=== PATIENT | female | born 1990 | race Caucasian/White ===

== ENCOUNTER 2016-12-18 10:04 | Day surgery (SDC) | payer OTHER ==
--- NOTE | 2016-12-14 09:05 | PDGENHP ---
History and Physical - Chief Complaint RIGHT HIP PAIN - History of Present Illness 1. Bilateral~Hip Dyplasia - Right hip labral tear 2. Left Femoral retrotorsion 3. ~~Cam type ANISH, minimal HISTORY OF PRESENT ILLNESS: Jaredis a 26 y.o.~very ~active female~who I have had the pleasure to consult on today.~I have enjoyed meeting her. She~lives in [place], [place]. ~Jaredworks as a CPA. ~ She~is ; she~has no~children. ~Jaredenjoys [employer], rock climbing, skiing and hiking. Reena's~right~hip pain~started August 2013, with some~recalled trauma or injury~ while playing [employer], and with no~previous complaints.~Jaredhas~a known history of hip dysplasia. She was seen at [facility] and~Dr. Castano informed~her that she has ~dysplasia.~ Presentation today is of~anterior right~hip pain. ~The hip does~wake her~at night and does~click and catch on her. Sitting can be a real struggle~for her. Jareddoes not~report suffering from lower back pain episodes. Jaredhas~participated in physical therapy (September 2013-November 2013)~and has~ tried other conservative measures including dry needling, chiropractic treatments and massage therapy. She~has not~received sufficient symptomatic improvement. Jaredhas not~utilized medication for pain management. Jareddenies issues with the left~hip. ~ Jaredunderstands that she~has a hip and pelvis problem which should be researched and wishes to get a better understanding of her~hip status, followed by an establishment of a treatment strategy, hoping sheTiffaniewould be able to get back to her~well being active life. History: Past medical history: ~ None which is relevant Relevant familial history: None which is relevant Past surgical history: None Jaredhas never received general anesthesia. I have reviewed, verified and agree with the past medical, surgical, family and social history. Current Medications:~currently has no medications in their medication list. ALLERGIES:~has No Known Allergies. Objective: Physical Examination: Jaredis 5~feet 5~inches tall and weighs~130~Lbs. Jaredis AAO x3; she~is well- nourished, in NAD. Skin is warm and dry. ~Breathing is non-labored. ~CV with RRR by pulse. Abdomen is soft, NTND. Currently, she~walks with a normal~gait. Trendelenburg sign is negative~and proprioception~is reduced, left~side. She~presents~with mild~signs of joint laxity.~Beightons Score: 3 She~is fit looking. ~~ Lower spine examination is negative~for sciatic or femoral nerve irritation with negative~SLR &~femoral stretch tests. Range of motion of the spine is normal~for flexion, extension, and rotations, with no~associated pain. Strength, Sensation and pulses are normal - bilaterally Ankles and knees exams are normal~and no~mal-alignment is evident. She~has~no leg length discrepancy. Thigh circumference is asymmetric~with low~muscle atrophy~on right~side. Hip ROM (degrees): FL ER At 90~hip FL IR At 90~hip FL AB AD EX IR Neutral hip ER Neutral hip R 110 50 50 40 10 10 50 25 L 105 55 10 40 5 15 30 45 Specific hip and pelvis tests: Quadrant GARTH Roll Add. Longus R +++ +++ Negative Negative L Negative Negative Negative Negative Glut. Med ITB Pos. Imp R Negative 5/5 strength Negative 5/5 strength Negative L Negative 5/5 strength Negative 5/5 strength Negative Squeeze test measured strong Bony Symphysis pubis is pain free~to touch while concentric activity of the rectus abdominis, does not~produce pain at its insertion. Ilio Psos specific tests are negative for pain during cycling for both hips~and no snap. HF has weakness the right hip. Anterior~capsule tenderness RIGHT Greater trochanteric burse is painful~on the right hip. Piriformis tests: FAIR is negative, with no~local signs of neuritis related to sciatic nerve. SIJs examination is normal~with normal~GARTH in relation and local tenderness. Hamstrings tests are negative~functional contraction and negative~tendinopathy both hips. On a daily basis, the following percentages reflect Reena's overall total pain: Deep hip: 90% GT: 10% Imaging: Radiology studies which I~have personally reviewed, analyzed and measured are below: XR: AP of the hip and pelvis: Performed in a good~technique Coccyx is below level of pubic symphysis [place]~Lines are interrupted. Minimal~Pathological signs are seen in the Symphysis Pubis. Minimal~Pathological signs are seen at the Ischial~tuberosity. ~ Specific measurements show: NSA~ LCE Sourcil~Angle Sharp's angle Lat. Cam Lat. Pincer C.Over~sign Head~Coverage % ATDmm R N 5 29 53 - - - 56 N L N 3 29 54 + - - 56 N Pos. wall sign ISS NAD ~~Dysplasia Comments R + Negative 23.3~mm +++ L ++ Negative 11.9~mm +++ Sclerosis Sup. Lat. OA Cysts Joint Space-WBZ Joint Space-Medial R Negative Negative Negative 5.6~mm 5.3~mm L Negative Negative Negative 5.1~mm 5.1~mm Reena brought in MRI study which was loaded in our system but we are unable to view study at this time. Impression and plan:~ Jaredis a 26 y.o.~active female~suffering from symptomatic RIGHT~hip pain due to Bilateral~Hip Dyplasia~causing significant disability to her~and altering~her ~sport and life activities. Physical examination, imaging, and her~story correspond with the diagnosis mentioned above. I explained that hip dysplasia is a condition wherein the hip joint has excessive play~and instability due to a variety of factors, including the depth and adequacy of the socket, the orientation of the femur bone, and ligament laxity around the hip joint. Dysplasia ranges in severity from borderline to jeana, with treatment options being specific to the specific nature of the problem. Left untreated, the instability in the hip joint can cause progressive tearing of the labrum and deterioration of the surface cartilage, ultimately resulting in progressive osteoarthritis of the hip. I explained that femoroacetabular impingement (ANISH - Cam type) arises due to a bony or soft tissue conflict between the femur (ball) and acetabulum (socket) caused by an abnormality in the shape of the femoral head and neck. Over time, repetitive impingement can result in damage to the labrum and adjacent surface cartilage within the socket, ultimately giving rise to progressive osteoarthritis of the hip. I explained that although a labral tear can be a source of pain, it is rarely the root of the problem and typically occurs secondary to an underlying abnormality in the shape and mechanics of the hip joint. I reviewed conservative treatment options for Dysplasia and ANISH including activity modification to avoid positions of impingement or instability, physical therapy, non-steroidal anti-inflammatory medications, and various injections (corticosteroid and PRP) aimed at reducing inflammation in the hip joint or/and preventing dynamic instability and impingement. PRP injections may promote healing and reduce symptoms in certain cases but it will not repair chronically damaged tissue. Although these measures may help to buy time~and reduce current level of symptoms, they are not a definitive solution to the problem given the underlying abnormality in the shape of the hip joint. Patients who have failed conservative management and continue to experience symptoms are candidates for definitive surgical treatment, which may consist of hip arthroscopy alone or in combination with more invasive bony realignment procedures of the hip socket and/or femur called periacetabular osteotomy (WERO) or derotational femoral osteotomy (DFO). Hip arthroscopy typically includes treating the labrum with either repair or reconstruction of the torn labrum; as well as addressing the underlying abnormalities by restoring the normal shape to the hip joint. If the cartilage is damaged a Microfracture surgical procedure may also be necessary to help stimulate the growth of fibrocartilage. If a patient requires a labral reconstruction or a Microfracture, the initial rehabilitation from the surgery may take longer, but the assistant terminal manager results are typically favorable. I reviewed the technical aspects of periacetabular osteotomy (WERO) including risks, benefits, and expected course of recovery. Reena~understands that WERO is an inpatient procedure carried out through two medium sized incisions on the front and back of the hip joint. The hip socket is cut, realigned, and stabilized with 2 ~3 internal screws. Risks include infection, bleeding, injury to nearby nerves or vessels, stiffness, persistent pain, instability, failure of bony healing, implant related complications, and venous thromboembolic disease. Rarely, revision surgery may be required to address these problems. Risks, potential complications, side effects and recovery from surgical procedure were discussed in length. We explained how this surgery is an open procedure, and though patients tend to do well in the long-term, it involves significant pain in the first 2-4 weeks post-op and a rather lengthy rehab.~Overall recovery takes approximately 6 ~12~months depending on the extent of damage and degree of repair. Reena~understands that she~will undergo hip arthroscopy 1 week prior to the WERO to address damage inside the hip joint. Jaredunderstands that hip arthroscopy and WERO are two separate procedures that are best performed one week apart, with the arthroscopy commencing first to "tighten up" any pathology evident in the hip joint (labral repair, etc.) and the WERO open procedure occurring 7-10 days later to realign the acetabulum. Jaredwill review the info presented. In order to obtain more detailed information regarding the alignment, orientation, and shape of the bony hip and pelvis I will order a CT scan to be performed. The results of the CT scan, including femoral torsion and acetabular version measured values and 3D images, will aid me in deciding on the best treatment strategy and surgical pre-planning. In order to evaluate the integrity of the surface cartilage within the hip joint , I will order a delayed gadolinium enhanced MRI of cartilage (dGEMRIC). This study will determine whetherJonnyis a good candidate for hip preservation surgery. Jaredwill contact us if she~wishes to pursue further treatment in the future. Jaredis happy with this plan. I have also supplied her~with handouts, outlining the expected surgical treatment and rehab involved. I wish~Jaredall the best, ~~ Jovany Jc, PAC History Information - Allergies/Home Medication List Allergies/Adverse Reactions: No Known Allergies Allergy (Verified 11/27/16 11:04) Home Medications: NK [No Known Home Meds] 11/27/16 [Last Taken Unknown] I have personally reviewed and updated: medical history - Social History Smoking Status: Never smoked Review of Systems Review of Systems: Physical Exam Physical Exam:
[2016-12-18] MEDS ORDERED: BUPIVACAINE 0.25% 30 ML SDV ONE (10:18)
[2016-12-18] MEDS ORDERED: EPINEPHrine 30 MG/30 ML MDV ONE (10:18)
[2016-12-18] MEDS ORDERED: LIDOCAINE 1% 2 ML INJ ONE (11:01)
[2016-12-18] MEDS ORDERED: ACETAMINOPHEN 500 MG TAB PO ONE (11:03)
[2016-12-18] MEDS ORDERED: ceFAZolin 2 GM/SWFI 2 GM/20 ML SYR IVP ONE (11:03)
[2016-12-18] MEDS ORDERED: PREGABALIN 150 MG CAP PO ONE (11:03)
[2016-12-18] MEDS ORDERED: LR 1,000 ML IV ONE (11:04)
[2016-12-18] MEDS ORDERED: LIDOCAINE 1% 2 ML INJ ID PRN (11:04)
[2016-12-18] MEDS ORDERED: MIDAZOLAM 2 MG/2 ML VIAL IVP ONE (14:20)
[2016-12-18] MEDS ORDERED: MIDAZOLAM 2 MG/2 ML VIAL ONE (14:22)
--- NOTE | 2016-12-18 14:25 | PDANEPAE ---
ANE History of Present Illness Hip arthroscopy ANE Past Medical History - Cardiovascular History Hx Hypertension: No Hx Arrhythmias: No Hx Chest Pain: No Hx Coronary Artery / Peripheral Vascular Disease: No Hx CHF / Valvular Disease: No Hx Palpitations: No - Pulmonary History Hx COPD: No Hx Asthma/Reactive Airway Disease: No Hx Recent Upper Respiratory Infection: No Hx Oxygen in Use at Home: No Hx Sleep Apnea: No Sleep Apnea Screening Result - Last Documented: Negative - Neurologic History Hx Cerebrovascular Accident: No Hx Seizures: No Hx Dementia: No - Endocrine History Hx Diabetes: No Hypothyroid: No Hyperthyroid: No Obesity: no - Renal History Hx Renal Disorders: No - Liver History Hx Hepatic Disorders: No - Neurological & Psychiatric Hx Hx Neurological and Psychiatric Disorders: No - Cancer History Hx Cancer: No - Congenital Disorder History Hx Congenital Disorders: No - GI History GERD: no Hx Gastrointestinal Disorders: No - Other Health History Other Health History: wears contacts - Chronic Pain History Chronic Pain: Yes (right hip) - Surgical History Prior Surgeries: 12/18/16 Right Hip scope, femoroplasty and labral repair with jessica-betsy. oral surgeries ANE Review of Systems Review of Systems: - Exercise capacity METS (RN): 5 METS ANE Patient History - Allergies Allergies/Adverse Reactions: No Known Allergies Allergy (Verified 11/27/16 11:04) - Home Medications Home Medications: NK [No Known Home Meds] 11/27/16 [Last Taken Unknown] - NPO status NPO Since - Liquids (Date): 12/18/16 NPO Since - Liquids (Time): 08:00 NPO Since - Solids (Date): 12/17/16 NPO Since - Solids (Time): 19:30 - Smoking Hx Smoking Status: Never smoked - Alcohol Use Alcohol Use: Rarely - Family Anes Hx Family Anes Hx: none Family Hx Anesthesia Complications: none ANE Labs/Vital Signs - Vital Signs Blood Pressure: 103/70 Heart Rate: 62 Respiratory Rate: 16 O2 Sat (%): 97 Height: 165.1 cm Weight: 58.967 kg ANE Physical Exam - Airway Neck exam: FROM Mallampati Score: Class 1 Mouth exam: normal dental/mouth exam - Pulmonary Pulmonary: no respiratory distress - Cardiovascular Cardiovascular: regular rate and rhythym, no murmur, rub, or gallop - ASA Status ASA Status: I ANE Anesthesia Plan Anesthesia Plan: general endotracheal anesthesia
[2016-12-18] MEDS ORDERED: SCOPOLAMINE HYDROBROMIDE 1 MG/3 DAYS PATCH TD ONE (14:29)
[2016-12-18] MEDS ORDERED: SCOPOLAMINE HYDROBROMIDE 1 MG/3 DAYS PATCH TD SCH (14:30)
[2016-12-18] MEDS ORDERED: fentaNYL 100 MCG/2 ML INJ ONE ×4 (14:30→17:05)
[2016-12-18] MEDS ORDERED: PROPOFOL 200 MG/20 ML VIAL ONE (14:30)
[2016-12-18] MEDS ORDERED: PROPOFOL/EMULSION 500 MG/50 ML BOTTLE IV ONE (14:30)
[2016-12-18] MEDS ORDERED: GLYCOPYRROLATE 0.2 MG/1 ML VIAL ONE ×3 (14:31→16:30)
[2016-12-18] MEDS ORDERED: DEXAMETHASONE 4 MG/ML VIAL ONE (14:31)
[2016-12-18] MEDS ORDERED: ROCURONIUM 50 MG/5 ML VIAL ONE ×2 (14:31→15:17)
[2016-12-18] MEDS ORDERED: LIDOCAINE 2% 5 ML SDV ONE (14:31)
[2016-12-18] MEDS ORDERED: NEOSTIGMINE METHYLSULFATE 3 MG/3 ML SYR ONE (16:30)
[2016-12-18] MEDS ORDERED: NALOXONE HCL 0.4 MG/ML INJ IVP PRN (17:00)
[2016-12-18] MEDS ORDERED: OXYCODONE/APAP 5/325 TAB PO PRN (17:00)
[2016-12-18] MEDS ORDERED: LR 500 ML IV PRN (17:00)
[2016-12-18] MEDS ORDERED: HYDROCODONE/APAP 5/325 TAB PO PRN (17:00)
[2016-12-18] MEDS ORDERED: MEPERIDINE 25 MG/ML SYR IVP PRN (17:00)
[2016-12-18] MEDS ORDERED: ONDANSETRON 4 MG/2 ML VIAL IVP PRN (17:00)
[2016-12-18] MEDS ORDERED: HYDROmorphONE/DILAUDID 1 MG/ML INJ IVP PRN (17:00)
[2016-12-18] MEDS ORDERED: PROMETHAZINE HCL 25 MG/ML INJ IVP PRN (17:00)
[2016-12-18] MEDS ORDERED: KETOROLAC 30 MG/1 ML SDV IVP PRN (17:03)
[2016-12-18] MEDS ORDERED: HYDROmorphONE/DILAUDID 1 MG/ML INJ ONE (17:04)
[2016-12-18] MEDS: fentaNYL 100 MCG/2 ML INJ IVP PRN ×2 (17:10→17:25)
[2016-12-18 17:23] VITALS: TEMP 98.6
[2016-12-18 18:08] VITALS: BP 111/60; PULSE 77; RESP 14; O2SAT 98
== END 2016-12-18 18:50 | disposition home or self-care (01) ==
LOC: FSGY 10:04
PROVIDERS: ATTEND Orthopaedic Surgery Sports Medicine
DX: Q65.89 Other specified congenital deformities of hip (principal); M76.891 Other specified enthesopathies of right lower limb, excluding foot
CPT/HCPCS: C1713; J0690; J1100; J1170; J2250; J2704; J2710; J3010

== ENCOUNTER 2017-01-01 06:52 | Inpatient (IN) | payer OTHER ==
--- NOTE | 2016-12-18 16:56 | POSTANESTH ---
Post Anesthetic Evaluation Cardiovascular Status: Normal, Stable Respiratory Status: Normal, Stable Level of Consciousness/Mental Status: Can Participate in Eval Pain Control: Adequate, Prn Tx Ordered Nausea/Vomiting Control: Adequate, Prn Tx Ordered Complications Possibly Related to Anesthesia: None Noted
[~2017-01-01 06:52] MED LIST: HYDROCODONE/APAP 5/325 TAB PO PRN; HYDROmorphONE/DILAUDID 1 MG/ML INJ IVP PRN; KETOROLAC 30 MG/1 ML SDV IVP PRN; LR 500 ML IV PRN; MEPERIDINE 25 MG/ML SYR IVP PRN; NALOXONE HCL 0.4 MG/ML INJ IVP PRN; ONDANSETRON 4 MG/2 ML VIAL IVP PRN; OXYCODONE/APAP 5/325 TAB PO PRN; PROMETHAZINE HCL 25 MG/ML INJ IVP PRN; fentaNYL 100 MCG/2 ML INJ IVP PRN
[2017-01-01] MEDS ORDERED: LIDOCAINE 1% 2 ML INJ ID PRN (07:03)
[2017-01-01] MEDS ORDERED: LR 1,000 ML IV ONE (07:03)
[2017-01-01] MEDS ORDERED: TRANEXAMIC ACID 1,000 MG in NS 100 ML IV ONE (07:32)
[2017-01-01] MEDS ORDERED: PREGABALIN 150 MG CAP PO ONE (07:32)
[2017-01-01] MEDS ORDERED: ACETAMINOPHEN 500 MG TAB PO ONE (07:32)
[2017-01-01] MEDS ORDERED: ceFAZolin 2 GM/SWFI 2 GM/20 ML SYR IVP ONE (07:32)
[2017-01-01] MEDS ORDERED: SCOPOLAMINE HYDROBROMIDE 1 MG/3 DAYS PATCH TD ONE (07:32)
--- NOTE | 2017-01-01 07:32 | PDGENHP ---
History and Physical - Chief Complaint Hip Pain - History of Present Illness 1. Bilateral~Hip Dyplasia - Right hip labral tear 2. Left Femoral retrotorsion 3. ~~Cam type ANISH, minimal HISTORY OF PRESENT ILLNESS: Jaredis a 26 y.o.~very ~active female~who I have had the pleasure to consult on today. I have enjoyed meeting her. She~lives in [place], [place]. ~Jaredworks as a CPA. ~ She~is ; she~has no~children. ~Jaredenjoys [employer], rock climbing, skiing and hiking. Reena's~right~hip pain~started August 2013, with some~recalled trauma or injury while playing [employer], and with no~previous complaints. Jaredhas~a known history of hip dysplasia. She was seen at [facility] and~Dr. Castano informed~her that she has ~dysplasia.~ Presentation today is of anterior right~hip pain. ~The hip does~wake her~at night and does~click and catch on her. Sitting can be a real struggle~for her. Jareddoes not~report suffering from lower back pain episodes. Jaredhas~participated in physical therapy (September 2013-November 2013)~and has~ tried other conservative measures including dry needling, chiropractic treatments and massage therapy. She~has not~received sufficient symptomatic improvement. Jaredhas not~utilized medication for pain management. Jareddenies issues with the left~hip. ~ Jaredunderstands that she~has a hip and pelvis problem which should be researched and wishes to get a better understanding of her~hip status, followed by an establishment of a treatment strategy, hoping sheTiffaniewould be able to get back to her~well being active life. History: Past medical history: ~ None which is relevant Relevant familial history: None which is relevant Past surgical history: None Jaredhas never received general anesthesia. I have reviewed, verified and agree with the past medical, surgical, family and social history. Current Medications:~currently has no medications in their medication list. ALLERGIES:~has No Known Allergies. Objective: Physical Examination: Jaredis 5~feet 5~inches tall and weighs 130~Lbs. Jaredis AAO x3; she~is well- nourished, in NAD. Skin is warm and dry. ~Breathing is non-labored. ~CV with RRR by pulse. Abdomen is soft, NTND. Currently, she~walks with a normal~gait. Trendelenburg sign is negative~and proprioception is reduced, left~side. She~presents with mild~signs of joint laxity. Beightons Score: 3 She~is fit looking. ~~ Lower spine examination is negative~for sciatic or femoral nerve irritation with negative~SLR &~femoral stretch tests. Range of motion of the spine is normal~for flexion, extension, and rotations, with no~associated pain. Strength, Sensation and pulses are normal - bilaterally Ankles and knees exams are normal~and no~mal-alignment is evident. She~has no leg length discrepancy. Thigh circumference is asymmetric~with low~muscle atrophy~on right~side. Hip ROM (degrees): FL ER At 90~hip FL IR At 90~hip FL AB AD EX IR Neutral hip ER Neutral hip R 110 50 50 40 10 10 50 25 L 105 55 10 40 5 15 30 45 Specific hip and pelvis tests: Quadrant GARTH Roll Add. Longus R +++ +++ Negative Negative L Negative Negative Negative Negative Glut. Med ITB Pos. Imp R Negative 5/5 strength Negative 5/5 strength Negative L Negative 5/5 strength Negative 5/5 strength Negative Squeeze test measured strong Bony Symphysis pubis is pain free~to touch while concentric activity of the rectus abdominis, does not~produce pain at its insertion. Ilio Psos specific tests are negative for pain during cycling for both hips~and no snap. HF has weakness the right hip. Anterior~capsule tenderness RIGHT Greater trochanteric burse is painful~on the right hip. Piriformis tests: FAIR is negative, with no~local signs of neuritis related to sciatic nerve. SIJs examination is normal~with normal~GARTH in relation and local tenderness. Hamstrings tests are negative~functional contraction and negative~tendinopathy both hips. On a daily basis, the following percentages reflect Reena's overall total pain: Deep hip: 90% GT: 10% Imaging: Radiology studies which I have personally reviewed, analyzed and measured are below: XR: AP of the hip and pelvis: Performed in a good~technique Coccyx is below level of pubic symphysis [place] Lines are interrupted. Minimal~Pathological signs are seen in the Symphysis Pubis. Minimal~Pathological signs are seen at the Ischial tuberosity. ~ Specific measurements show: NSA~ LCE Sourcil~Angle Sharp's angle Lat. Cam Lat. Pincer C.Over~sign Head~Coverage % ATDmm R N 5 29 53 - - - 56 N L N 3 29 54 + - - 56 N Pos. wall sign ISS NAD ~~Dysplasia Comments R + Negative 23.3~mm +++ L ++ Negative 11.9~mm +++ Sclerosis Sup. Lat. OA Cysts Joint Space-WBZ Joint Space-Medial R Negative Negative Negative 5.6~mm 5.3~mm L Negative Negative Negative 5.1~mm 5.1~mm Reena brought in MRI study which was loaded in our system but we are unable to view study at this time. Impression and plan: Jaredis a 26 y.o.~active female~suffering from symptomatic RIGHT~hip pain due to Bilateral~Hip Dyplasia~causing significant disability to her~and altering her ~sport and life activities. Physical examination, imaging, and her~story correspond with the diagnosis mentioned above. I explained that hip dysplasia is a condition wherein the hip joint has excessive play~and instability due to a variety of factors, including the depth and adequacy of the socket, the orientation of the femur bone, and ligament laxity around the hip joint. Dysplasia ranges in severity from borderline to jeana, with treatment options being specific to the specific nature of the problem. Left untreated, the instability in the hip joint can cause progressive tearing of the labrum and deterioration of the surface cartilage, ultimately resulting in progressive osteoarthritis of the hip. I explained that femoroacetabular impingement (ANISH - Cam type) arises due to a bony or soft tissue conflict between the femur (ball) and acetabulum (socket) caused by an abnormality in the shape of the femoral head and neck. Over time, repetitive impingement can result in damage to the labrum and adjacent surface cartilage within the socket, ultimately giving rise to progressive osteoarthritis of the hip. I explained that although a labral tear can be a source of pain, it is rarely the root of the problem and typically occurs secondary to an underlying abnormality in the shape and mechanics of the hip joint. I reviewed conservative treatment options for Dysplasia and ANISH including activity modification to avoid positions of impingement or instability, physical therapy, non-steroidal anti-inflammatory medications, and various injections (corticosteroid and PRP) aimed at reducing inflammation in the hip joint or/and preventing dynamic instability and impingement. PRP injections may promote healing and reduce symptoms in certain cases but it will not repair chronically damaged tissue. Although these measures may help to buy time~and reduce current level of symptoms, they are not a definitive solution to the problem given the underlying abnormality in the shape of the hip joint. Patients who have failed conservative management and continue to experience symptoms are candidates for definitive surgical treatment, which may consist of hip arthroscopy alone or in combination with more invasive bony realignment procedures of the hip socket and/or femur called periacetabular osteotomy (WERO) or derotational femoral osteotomy (DFO). Hip arthroscopy typically includes treating the labrum with either repair or reconstruction of the torn labrum; as well as addressing the underlying abnormalities by restoring the normal shape to the hip joint. If the cartilage is damaged a Microfracture surgical procedure may also be necessary to help stimulate the growth of fibrocartilage. If a patient requires a labral reconstruction or a Microfracture, the initial rehabilitation from the surgery may take longer, but the watermaster results are typically favorable. I reviewed the technical aspects of periacetabular osteotomy (WERO) including risks, benefits, and expected course of recovery. Reena~understands that WERO is an inpatient procedure carried out through two medium sized incisions on the front and back of the hip joint. The hip socket is cut, realigned, and stabilized with 2 3 internal screws. Risks include infection, bleeding, injury to nearby nerves or vessels, stiffness, persistent pain, instability, failure of bony healing, implant related complications, and venous thromboembolic disease. Rarely, revision surgery may be required to address these problems. Risks, potential complications, side effects and recovery from surgical procedure were discussed in length. We explained how this surgery is an open procedure, and though patients tend to do well in the long-term, it involves significant pain in the first 2-4 weeks post-op and a rather lengthy rehab.~Overall recovery takes approximately 6 12~months depending on the extent of damage and degree of repair. Reena~understands that she~will undergo hip arthroscopy 1 week prior to the WERO to address damage inside the hip joint. Reena~understands that hip arthroscopy and WERO are two separate procedures that are best performed one week apart, with the arthroscopy commencing first to "tighten up" any pathology evident in the hip joint (labral repair, etc.) and the WERO open procedure occurring 7-10 days later to realign the acetabulum. Jaredwill review the info presented. In order to obtain more detailed information regarding the alignment, orientation, and shape of the bony hip and pelvis I will order a CT scan to be performed. The results of the CT scan, including femoral torsion and acetabular version measured values and 3D images, will aid me in deciding on the best treatment strategy and surgical pre-planning. In order to evaluate the integrity of the surface cartilage within the hip joint , I will order a delayed gadolinium enhanced MRI of cartilage (dGEMRIC). This study will determine whether~Jaredis a good candidate for hip preservation surgery. Jaredwill contact us if she~wishes to pursue further treatment in the future. Jaredis happy with this plan. I have also supplied her~with handouts, outlining the expected surgical treatment and rehab involved. I wish~Jaredall the best, ~~ Jovany Jc, PAC History Information - Allergies/Home Medication List Allergies/Adverse Reactions: No Known Allergies Allergy (Verified 11/27/16 11:04) Home Medications: NK [No Known Home Meds] 11/27/16 [Last Taken Unknown] I have personally reviewed and updated: medical history - Social History Smoking Status: Never smoked Review of Systems Review of Systems: Physical Exam Physical Exam: Temp Pulse Resp BP Pulse Ox 36.6 C 71 18 105/71 96 01/01/17 07:10 01/01/17 07:10 01/01/17 07:10 01/01/17 07:10 01/01/17 07:10
[2017-01-01] MEDS ORDERED: CITRATE DEXTROSE SOLN 500 ML BAG ONE ×2 (07:39→11:48)
[2017-01-01 07:53] LABS: HEMATOCRIT 40.5 % (38.0-47.0); HEMOGLOBIN 14.4 g/dL (12.6-16.3); MEAN CELL HEMOGLOBIN 31.5 pg (27.9-34.1); MEAN CELL HEMOGLOBIN CONCENTR. 35.6 g/dL (32.4-36.7); MEAN CELL VOLUME 88.6 fL (81.5-99.8); RED BLOOD CELL COUNT 4.57 10^6/uL (4.18-5.33); RED CELL DISTRIBUTION WIDTH 12.1 % (11.5-15.2)
[2017-01-01] MEDS ORDERED: MIDAZOLAM 2 MG/2 ML VIAL IVP ONE (08:01)
--- NOTE | 2017-01-01 08:01 | PDANEPAE ---
ANE History of Present Illness 26 yo F here for WERO ANE Past Medical History - Cardiovascular History Hx Hypertension: No Hx Arrhythmias: No Hx Chest Pain: No Hx Coronary Artery / Peripheral Vascular Disease: No Hx CHF / Valvular Disease: No Hx Palpitations: No - Pulmonary History Hx COPD: No Hx Asthma/Reactive Airway Disease: No Hx Recent Upper Respiratory Infection: No Hx Oxygen in Use at Home: No Hx Sleep Apnea: No Sleep Apnea Screening Result - Last Documented: Negative - Neurologic History Hx Cerebrovascular Accident: No Hx Seizures: No Hx Dementia: No - Endocrine History Hx Diabetes: No - Renal History Hx Renal Disorders: No - Liver History Hx Hepatic Disorders: No - Neurological & Psychiatric Hx Hx Neurological and Psychiatric Disorders: No - Cancer History Hx Cancer: No - Congenital Disorder History Hx Congenital Disorders: No - GI History Hx Gastrointestinal Disorders: No - Other Health History Other Health History: wears contacts - Chronic Pain History Chronic Pain: Yes (right hip) - Surgical History Prior Surgeries: 12/18/16 Right Hip scope, femoroplasty and labral repair with jessica-betsy. oral surgeries ANE Review of Systems Review of Systems: - Exercise capacity METS (RN): 5 METS ANE Patient History - Allergies Allergies/Adverse Reactions: No Known Allergies Allergy (Verified 11/27/16 11:04) - Home Medications Home medications: home medication list seen and reviewed Home Medications: NK [No Known Home Meds] 11/27/16 [Last Taken Unknown] - NPO status NPO Status: no food or drink >8 hours NPO Since - Liquids (Date): 12/31/16 NPO Since - Liquids (Time): 22:30 NPO Since - Solids (Date): 12/31/16 NPO Since - Solids (Time): 19:30 - Anes Hx Anes Hx: no prior problems - Smoking Hx Smoking Status: Never smoked - Alcohol Use Alcohol Use: Occasionally - Family Anes Hx Family Anes Hx: none Family Hx Anesthesia Complications: none ANE Labs/Vital Signs - Labs Result Diagrams: 01/01/17 07:44 - Vital Signs Blood Pressure: 105/71 Heart Rate: 71 Respiratory Rate: 18 O2 Sat (%): 96 Height: 165.1 cm Weight: 58.967 kg ANE Physical Exam - Airway Neck exam: FROM Mallampati Score: Class 2 Mouth exam: normal dental/mouth exam - Pulmonary Pulmonary: no respiratory distress, clear to auscultation - Cardiovascular Cardiovascular: regular rate and rhythym, no murmur, rub, or gallop - ASA Status ASA Status: I ANE Anesthesia Plan Anesthesia Plan: general endotracheal anesthesia, epidural
[2017-01-01] MEDS ORDERED: PROPOFOL 200 MG/20 ML VIAL ONE ×2 (08:12→08:13)
[2017-01-01] MEDS ORDERED: fentaNYL 100 MCG/2 ML INJ ONE (08:12)
[2017-01-01] MEDS ORDERED: ROCURONIUM 50 MG/5 ML VIAL ONE (08:13)
[2017-01-01] MEDS ORDERED: LIDOCAINE 2% 100 MG/5 ML SYR ONE (08:13)
[2017-01-01] MEDS ORDERED: NARCOTIC DRIP BAG-TOTAL ALL TYPES EP PRN (10:11)
[2017-01-01] MEDS ORDERED: ONDANSETRON 4 MG/2 ML VIAL IVP PRN ×3 (10:11→19:15)
[2017-01-01] MEDS ORDERED: fentaNYL 2MCG/ML/BUP 0.1% RTU 100 ML EP SCH (10:11)
[2017-01-01] MEDS ORDERED: diphenhydrAMINE 25 MG CAP PO PRN (10:11)
[2017-01-01] MEDS ORDERED: NALOXONE HCL 0.4 MG/ML INJ IVP PRN ×2 (10:11→19:15)
[2017-01-01] MEDS ORDERED: PHENYLEPHRINE HCL 100 MCG/ML SYR ONE ×3 (11:58→13:17)
[2017-01-01] MEDS ORDERED: HYDROmorphONE/DILAUDID 2 MG/ML INJ ONE (13:10)
[2017-01-01] MEDS ORDERED: ROPIVACAINE HCL 150 MG/30 ML INJ ONE (13:42)
[2017-01-01] MEDS ORDERED: MAGNESIUM HYDROXIDE 30 ML UDCUP PO PRN (14:02)
[2017-01-01] MEDS ORDERED: LACTULOSE 20 GM/30 ML UDCUP PO PRN (14:02)
[2017-01-01] MEDS ORDERED: POLYETHYLENE GLYCOL 3350 17 GM PKT PO PRN (14:02)
[2017-01-01] MEDS ORDERED: BISACODYL 10 MG SUPP PR PRN (14:02)
[2017-01-01] MEDS: fentaNYL 4MCG/ML/BUP 0.1% in 100ML NS EP SCH (14:28)
[2017-01-01] MEDS ORDERED: fentaNYL 100 MCG/2 ML INJ IVP PRN (19:15)
[2017-01-01] MEDS ORDERED: PROMETHAZINE HCL 25 MG/ML INJ IVP PRN (19:15)
--- NOTE | 2017-01-01 19:18 | POSTANESTH ---
Post Anesthetic Evaluation Cardiovascular Status: Normal, Stable, Similar to Pre-Op Cond Respiratory Status: Normal, Stable, Similar to Pre-op Cond. Level of Consciousness/Mental Status: Can Participate in Eval, Alert and Oriented Pain Control: Adequate, Prn Tx Ordered Nausea/Vomiting Control: Adequate, Prn Tx Ordered Complications Possibly Related to Anesthesia: None Noted
[2017-01-01] MEDS: SENNOSIDES/DOCUSATE SODIUM TAB PO SCH (20:09)
--- NOTE | 2017-01-01 22:36 | SUROPNOTE ---
NADIR Operative Report - Surgery Surgery was performed in [facility] 01/01/17 Diagnosis: Right 1. Hip Acetabular Dysplasia ~ Operation: Right~Sybil Acetabular Osteotomy (WERO) with additional iliac crest allograft Surgeon: Esvin Alegria MD Construction Manager:~~James JENNINGS Anesthetic: General + epidural Procedure: General anesthetic. Antibiotics given. Cell saver in use. Fluoroscopy. Phase 1: Position lateral, diagonal skin incision between ischial tuberosity and greater trochanter as for posterior hip approach. Blunt split of glut max fibers. Identification of fat pad overlying sciatic nerve. Exposure of sciatic nerve under fat pad, gently retracting it away-medially to ischial tuberosity. Exposure of subcotoloid fossa proximal to short rotators. Using osteotomes and under fluoroscopy, osteotomy of subcotoloid fossa to sciatic notch proximal to ischial spine. Closure of lateral cut. Patient is turned supine. Phase 2: Skin incision just distal to ASIS. Using diathermy the iliac spine was exposed and inguinal ligament + Sartorious were retracted medially, taking the LFCN with them, protecting it. Inner ilium was dissected from iliacus muscle bluntly , with a cob and swab. Dissection continued towards lateral superior ramus pubis. Using fluoroscopy an osteotomy of lateral superior ramus, just medial to tear drop, was performed with curved fish mouth osteotome. Phase 3: Osteotomy lines of the ilium were marked with diathermy as pre planned according to XR/CT and expected correction of acatabulum. 2 Shanz screws were drilled into central acetabular fragment, corresponding with planned correction angles, in order to mobilize central acetabular fragment after osteotomy is complete. ~Iliac osteotomy was performed with reciprocating saw and the main acetabular fragment was moved to realign weight bearing position. After confirmation of correction using fluoroscopy in AP and false profile planes, the fragment was fixed with 3 - 4mm~~full threaded~screws~and 2 - 5.5mm ~full threaded~screws. Iliac crest allograft was placed in the area were there was lack of bony apposition due to large correction. Inguinal ligament and Sartorious were attached back to ASIS through drill holes. Incision was closed according to soft tissue layers. Skin was closed with subdermal Monocryl. Final fluoro shots were obtained to confirm position/correction. After surgery Reena~moved both lower limbs and had no NV motor compromise. Evaluation under anesthesia: IR at 90 degrees hip flexion prior to WERO was 40~degrees and after WERO was 20~ degrees. Bleedin~cc into cell-saver, 270~of blood products were returned to patient. Post op instructions: 1. Non~weight bearing crutches for 6 weeks 2. Epidural analgesia for 24-48 hours 3. Continuous SCD 4. Aspirin 81 mg X1 day once Epidural is discontinued 5. Avoid hip flexion past 90 and hip External rotation. 6. PT according to my recommendations at follow up visit Kind regards, Dr. Esvin Alegria
[2017-01-02] MEDS: fentaNYL 4MCG/ML/BUP 0.1% in 100ML NS EP SCH ×2 (01:16→11:49)
[2017-01-02 05:15] LABS: HEMOGLOBIN 9.9 g/dL (12.6-16.3); MEAN CELL HEMOGLOBIN 30.7 pg (27.9-34.1); MEAN CELL HEMOGLOBIN CONCENTR. 34.1 g/dL (32.4-36.7); MEAN CELL VOLUME 89.8 fL (81.5-99.8); RED BLOOD CELL COUNT 3.23 10^6/uL (4.18-5.33); RED CELL DISTRIBUTION WIDTH 11.9 % (11.5-15.2)
[2017-01-02 05:31] LABS: ANION GAP 6 mEq/L (8-16); CALCIUM 8.2 mg/dL (8.5-10.4); CARBON DIOXIDE 27 mEq/l (22-31); CHLORIDE 104 mEq/L (97-110); CREATININE 0.8 mg/dL (0.6-1.0); GLOMERULAR FILTRATION RATE > 60; GLUCOSE 88 mg/dL (70-100); POTASSIUM 4.1 mEq/L (3.5-5.2); SODIUM 137 mEq/L (134-144)
[2017-01-02] MEDS: REGARDING ANTICOAG MISC SCH (10:37)
[2017-01-02] MEDS: DC NARCS MISC SCH (10:37)
[2017-01-02] MEDS: SENNOSIDES/DOCUSATE SODIUM TAB PO SCH ×2 (10:39→20:19)
--- NOTE | 2017-01-02 13:15 | ASMTCMCOM ---
CM Note CM Note Notes: Pt s/p WERO for hip dysplasia, PT/OT evals pending. CM to follow. Date Signed: 01/02/2017 01:14 PM Electronically Signed By:YESICA Valiente
[2017-01-02] MEDS: ACETAMINOPHEN 325 MG TAB PO PRN ×2 (14:06→20:18)
--- NOTE | 2017-01-02 18:41 | SOAPPROG ---
SOAP Progress Note Assessment/Plan: Assessment: 1 day post op Right periacetabular osteotomy Post op low grade fevers, likely atelectasis Plan: Epidural to be weaned down by anesthesia, then transition to oral analgesics Strict NWB RLE Incentive spirometry Pelvis xray 3rd post op day 01/02/17 18:37 Subjective: Reena is doing fairly well this evening. Her pain is managed with epidural at 8. She denies any nausea, cp or sob. She has had low grade fevers today up to 101.9F. Objective: Vital Signs Temp Pulse Resp BP Pulse Ox 36.3 C 89 18 97/49 L 95 01/02/17 18:00 01/02/17 16:55 01/02/17 18:00 01/02/17 16:55 01/02/17 16:55 Laboratory Results 01/02/17 04:47 01/02/17 04:47 01/01/17 01/02/17 01/03/17 05:59 05:59 05:59 Intake Total 5975 2400 Output Total 5650 3700 Balance 325 -1300 Well appearing in NAD Right hip: dressings clean, dry, intact surrounding ecchymosis edema NVI distally Full ROM of foot and ankle - Pending Discharge Pending Discharge Within 48 Hours: Yes Pending Discharge Date: 01/04/17 Pending Discharge Time: 11:00 ICD10 Worksheet Patient Problems: Problems Problem Status Onset Post-operative pain Acute - ICD10 Problem Qualifiers (1) Post-operative pain
--- NOTE | 2017-01-02 19:07 | POSTANESTH ---
Post Anesthetic Evaluation Cardiovascular Status: Normal, Stable, Similar to Pre-Op Cond Respiratory Status: Normal, Stable, Similar to Pre-op Cond. Level of Consciousness/Mental Status: Can Participate in Eval, Alert and Oriented Pain Control: Adequate, Prn Tx Ordered Nausea/Vomiting Control: Adequate, Prn Tx Ordered Complications Possibly Related to Anesthesia: None Noted Notes: Pt seen and examined, POD1 s/p R WERO. Pain control is good, rated as "a dull ache" and "tolerable". She used her demand bolus x3 this 24hr period. Reports some itching, no nausea. Epidural level is ~T12-L4 B. Back site is c/d/i, no e /e/e. Reports some mild pain at the insertion site. Recommend: Continue PCEA. Decrease continuous rate to 4 cc/hr, and demand of 4cc, lockout 15 min, same infusion of bupi 0.1%, fent 4 mcg/mL. Will consider trial of held epidural tomorrow with plan to d/c if she tolerates transition to PO meds. NWB per surgery. Please call with any questions or concerns.
[2017-01-03] MEDS: ACETAMINOPHEN 325 MG TAB PO PRN (02:45)
[2017-01-03] MEDS ORDERED: oxyCODONE IR 15 MG TAB PO PRN (09:27)
[2017-01-03] MEDS ORDERED: oxyCODONE IR 15 MG TAB PO SCH (10:00)
--- NOTE | 2017-01-03 10:16 | POSTANESTH ---
Post Anesthetic Evaluation Cardiovascular Status: Normal, Stable, Similar to Pre-Op Cond Respiratory Status: Normal, Stable, Similar to Pre-op Cond. Level of Consciousness/Mental Status: Can Participate in Eval, Alert and Oriented Pain Control: Adequate, Prn Tx Ordered Nausea/Vomiting Control: Adequate, Prn Tx Ordered Complications Possibly Related to Anesthesia: None Noted Notes: Pt seen and examined, POD2 s/p WERO w PCEA T12/L1. Pain control rated as good overnight after initial taper from basal rate 8cc/hr to 4cc/hr. Minimal use of bolus button overnight. Denies n/v or pruritis. Main cx this am is discomfort around the epidural insertion site. Back site examined-- c/d/i without e/e/e. Recommendations: Epidural removed, atraumatic with tip intact. Insertion site pain relieved. Transition to PO pain medications with bolus IV backup for breakthrough pain. Advise one dose po now, d/w nursing staff. Thank you for this interesting consult, please don't hesitate to call with any further questions or concerns.
[2017-01-03] MEDS: SENNOSIDES/DOCUSATE SODIUM TAB PO SCH ×2 (10:21→22:07)
[2017-01-03] MEDS: oxyCODONE IR 5 MG TAB PO SCH ×4 (10:21→22:08)
[2017-01-03] MEDS: ONDANSETRON DISINTEGRATING 4 MG TAB PO PRN (10:30)
[2017-01-03] MEDS: HYDROmorphone HCL/NS/PF 0.4 MG/2 ML SYR IVP PRN ×2 (11:44→13:43)
[2017-01-03] MEDS: DC NARCS MISC SCH (11:46)
[2017-01-03] MEDS: REGARDING ANTICOAG MISC SCH (11:47)
[2017-01-03] MEDS: DIAZEPAM 2 MG TAB PO PRN (12:20)
[2017-01-03] MEDS: oxyCODONE IR 5 MG TAB PO PRN (12:52)
[2017-01-03] MEDS ORDERED: HYDROmorphONE/DILAUDID 6 MG/30 ML PCA IV PRN (13:54)
[2017-01-03] MEDS ORDERED: NALOXONE HCL 0.4 MG/ML INJ IVP PRN (13:54)
[2017-01-03] MEDS ORDERED: HYDROmorphone HCL/NS/PF 0.4 MG/2 ML SYR IVP ONE (14:15)
[2017-01-03] MEDS: ASPIRIN EC 81 MG TAB PO SCH (16:13)
[2017-01-04] MEDS: oxyCODONE IR 5 MG TAB PO SCH ×6 (02:00→21:05)
--- NOTE | 2017-01-04 07:27 | SOAPPROG ---
SOAP Progress Note Assessment/Plan: Assessment: POD#3 s/p R WERO and doing well overall Plan: - will work to transition off of LOG CHAIN WORKER today - OOB today; work with PT - continue regular diet and strict bowel regimen - XR AP Pelvis today - while in bed bump patient q 2 - 3 hrs - dvt ppx with SCDs and ASA - anticipate discharge to home Sunday vs Sunday01/04/17 07:25 Subjective: Pain controlled overnight with scheduled oxy and only 2.4 ml of LOG CHAIN WORKER used. No n/v , had large BM yesterday. Had single hallucination overnight after pressing dilaudid LOG CHAIN WORKER. No fevers/chills. Objective: Vital Signs Temp Pulse Resp BP Pulse Ox 36.7 C 93 16 105/49 L 96 01/04/17 03:42 01/04/17 03:42 01/04/17 03:42 01/04/17 03:42 01/04/17 03:42 Laboratory Results 01/02/17 04:47 01/02/17 04:47 01/03/17 01/04/17 01/05/17 05:59 05:59 05:59 Intake Total 3400 1500 Output Total 7000 475 Balance -3600 1025 GEN - NAD, AO ABD - SOFT, NT, ND BLE - - Incisional dressings c/d/i - 5/5 dorsi and plantar flexion at ankle and thigh adduction - SILT, except decreased in R LFCN distribution - palpable dp and pt pulses, WWP - SCDs in place ICD10 Worksheet Patient Problems: Problems Problem Status Onset Post-operative pain Acute
[2017-01-04] MEDS: ASPIRIN EC 81 MG TAB PO SCH (09:43)
[2017-01-04] MEDS: SENNOSIDES/DOCUSATE SODIUM TAB PO SCH ×2 (09:43→21:04)
[2017-01-04] MEDS: REGARDING ANTICOAG MISC SCH (09:51)
[2017-01-04] MEDS: DC NARCS MISC SCH (09:51)
[2017-01-04] MEDS: DIAZEPAM 2 MG TAB PO PRN ×2 (15:26→21:05)
[2017-01-05] MEDS: oxyCODONE IR 5 MG TAB PO SCH ×4 (02:02→15:36)
[2017-01-05] MEDS: DIAZEPAM 2 MG TAB PO PRN (02:58)
[2017-01-05 07:42] VITALS: BP 104/51; PULSE 92; RESP 18; TEMP 98.2; O2SAT 93
[2017-01-05] MEDS: ASPIRIN EC 81 MG TAB PO SCH (08:57)
[2017-01-05] MEDS: SENNOSIDES/DOCUSATE SODIUM TAB PO SCH (08:58)
[2017-01-05] MEDS: ONDANSETRON DISINTEGRATING 4 MG TAB PO PRN (10:10)
[2017-01-05] MEDS: REGARDING ANTICOAG MISC SCH (10:23)
[2017-01-05] MEDS: DC NARCS MISC SCH (10:23)
--- NOTE | 2017-01-05 12:21 | ASMTCMCOM ---
CM Note CM Note Notes: PT/OT clear pt for home with family assist. Anticipate pt will d/c when medically stable. No CM d/c needs identified at this time. CM available for changes/needs. Date Signed: 01/05/2017 12:20 PM Electronically Signed By:YESICA Valiente
[2017-01-05] MEDS: oxyCODONE IR 5 MG TAB PO PRN (12:26)
[2017-01-05] MEDS: ACETAMINOPHEN 325 MG TAB PO PRN (15:36)
--- NOTE | 2017-01-05 15:39 | SOAPPROG ---
AMY Progress Note Assessment/Plan: Assessment: 4th post op day Right periacetabular osteotomy Plan: DC home Strict NWB RLE See discharge instructions 01/02/17 18:37 01/05/17 15:33 Subjective: Reena is doing well this afternoon. She is sitting up in a chair, well pain managed with oral analgesics, she denies cp, sob or nausea. She is ready to go home. Objective: Vital Signs Temp Pulse Resp BP Pulse Ox 36.8 C 92 18 104/51 L 93 01/05/17 07:40 01/05/17 07:40 01/05/17 07:40 01/05/17 07:40 01/05/17 07:40 Laboratory Results 01/02/17 04:47 01/02/17 04:47 01/04/17 01/05/17 01/06/17 05:59 05:59 05:59 Intake Total 1500 1012 Output Total 475 2400 800 Balance 1025 -1388 -800 Well appearing in NAD Right Hip dressings clean dry intact edema scattered ecchymosis thigh numbness: LFCN Full ROM of foot and ankle NVI distally - Pending Discharge Pending Discharge Within 24 Hours: Yes Pending Discharge Date: 01/06/17 Pending Discharge Time: 11:00 ICD10 Worksheet Patient Problems: Problems Problem Status Onset Post-operative pain Acute - ICD10 Problem Qualifiers (1) Post-operative pain
--- NOTE | 2017-01-05 16:56 | ASDISCHSUM ---
Discharge Information Plan Status:Home with No Needs Medically Cleared to Leave: Discharge Date:01/05/2017 04:35 PM CM D/C Disposition:Home, Routine, Self-Care ADT D/C Disposition:Home, Routine, Self-Care Projected Discharge Date:01/05/2017 04:35 PM Transportation at D/C: Discharge Delay Reason: Follow-Up Date:01/05/2017 04:35 PM Discharge Slot: Final Diagnosis: Placement Information Patient Contact Information Contact Name:NABILA Relationship: Address:[facility] [address] Work Phone: City:[place] Phone: [facility]/Zip Code:[place] [address] Email: Financial Information Financial Class:[employer] Primary Plan Desc:[employer] Primary Plan Number:[id number] Secondary Plan Desc: Secondary Plan Number: Assessment Information [facility] CM Progress Note CM Note CM Note Notes: Pt s/p WERO for hip dysplasia, PT/OT evals pending. CM to follow. Date Signed: 01/02/2017 01:14 PM Electronically Signed By:YESICA Valiente [facility] CM Progress Note CM Note CM Note Notes: PT/OT clear pt for home with family assist. Anticipate pt will d/c when medically stable. No CM d/c needs identified at this time. CM available for changes/needs. Date Signed: 01/05/2017 12:20 PM Electronically Signed By:YESICA Valiente Intervention Information Intervention Type:*Incorrect Registration Date of Service:01/01/2017 05:23 PM Patient Type:Observation Staff Member:RADHIKA Hughes, [place] Hours: Discipline: Severity: Comment:
== END 2017-01-05 16:35 | disposition home or self-care (01) | DRG 516 ==
LOC: OBSVTOIN 06:52 → F3N 06:52 → PREINTOOBSV 09:09 → F3N 15:46
PROVIDERS: ADMIT Orthopaedic Surgery Sports Medicine; ATTEND Orthopaedic Surgery Sports Medicine
PROC: BQ101ZZ Fluoroscopy of Right Hip using Low Osmolar Contrast (ICD-10-PCS; principal; 2017-01-01 08:15)
PROC: 0Q840ZZ Division of Right Acetabulum, Open Approach (ICD-10-PCS; principal; 2017-01-01 08:15)
DX: Q65.89 Other specified congenital deformities of hip (principal); J98.11 Atelectasis; M24.151 Other articular cartilage disorders, right hip
CPT/HCPCS: 97116-GP; 97161-GP; 97167-GO; 97535-GO; C1713; J0690; J1170; J2001; J2250; J2370; J2704; J2795; J3010; J7060

== ENCOUNTER 2017-07-27 05:48 | Day surgery (SDC) | payer OTHER ==
--- NOTE | 2017-07-26 23:01 | PDGENHP ---
History and Physical - Chief Complaint Right Hip Pain - History of Present Illness 1. Bilateral~Hip Dyplasia - Right hip labral tear 2. Left Femoral retrotorsion 3. ~~Cam type ANISH, minimal HISTORY OF PRESENT ILLNESS: Jaredis a 26 y.o.~very ~active female~who I have had the pleasure to consult on today. I have enjoyed meeting her. She~lives in [place], [place]. ~Jaredworks as a CPA. ~ She~is ; she~has no~children. ~Jaredenjoys [place], rock climbing, skiing and hiking. Reena's~right~hip pain~started August 2013, with some~recalled trauma or injury while playing [employer], and with no~previous complaints. Jaredhas~a known history of hip dysplasia. She was seen at [facility] and~Dr. Castano informed~her that she has ~dysplasia.~ Presentation today is of anterior right~hip pain. ~The hip does~wake her~at night and does~click and catch on her. Sitting can be a real struggle~for her. Jareddoes not~report suffering from lower back pain episodes. Jaredhas~participated in physical therapy (September 2013-November 2013)~and has~ tried other conservative measures including dry needling, chiropractic treatments and massage therapy. She~has not~received sufficient symptomatic improvement. Jaredhas not~utilized medication for pain management. Jareddenies issues with the left~hip. ~ Jaredunderstands that she~has a hip and pelvis problem which should be researched and wishes to get a better understanding of her~hip status, followed by an establishment of a treatment strategy, hoping sheTiffaniewould be able to get back to her~well being active life. History: Past medical history: ~ None which is relevant Relevant familial history: None which is relevant Past surgical history: None Jaredhas never received general anesthesia. I have reviewed, verified and agree with the past medical, surgical, family and social history. Current Medications:~currently has no medications in their medication list. ALLERGIES:~has No Known Allergies. Objective: Physical Examination: Jaredis 5~feet 5~inches tall and weighs 130~Lbs. Jaredis AAO x3; she~is well- nourished, in NAD. Skin is warm and dry. ~Breathing is non-labored. ~CV with RRR by pulse. Abdomen is soft, NTND. Currently, she~walks with a normal~gait. Trendelenburg sign is negative~and proprioception is reduced, left~side. She~presents with mild~signs of joint laxity. Beightons Score: 3 She~is fit looking. ~~ Lower spine examination is negative~for sciatic or femoral nerve irritation with negative~SLR &~femoral stretch tests. Range of motion of the spine is normal~for flexion, extension, and rotations, with no~associated pain. Strength, Sensation and pulses are normal - bilaterally Ankles and knees exams are normal~and no~mal-alignment is evident. She~has no leg length discrepancy. Thigh circumference is asymmetric~with low~muscle atrophy~on right~side. Hip ROM (degrees): FL ER At 90~hip FL IR At 90~hip FL AB AD EX IR Neutral hip ER Neutral hip R 110 50 50 40 10 10 50 25 L 105 55 10 40 5 15 30 45 Specific hip and pelvis tests: Quadrant GARTH Roll Add. Longus R +++ +++ Negative Negative L Negative Negative Negative Negative Glut. Med ITB Pos. Imp R Negative 5/5 strength Negative 5/5 strength Negative L Negative 5/5 strength Negative 5/5 strength Negative Squeeze test measured strong Bony Symphysis pubis is pain free~to touch while concentric activity of the rectus abdominis, does not~produce pain at its insertion. Ilio Psos specific tests are negative for pain during cycling for both hips~and no snap. HF has weakness the right hip. Anterior~capsule tenderness RIGHT Greater trochanteric burse is painful~on the right hip. Piriformis tests: FAIR is negative, with no~local signs of neuritis related to sciatic nerve. SIJs examination is normal~with normal~GARTH in relation and local tenderness. Hamstrings tests are negative~functional contraction and negative~tendinopathy both hips. On a daily basis, the following percentages reflect Reena's overall total pain: Deep hip: 90% GT: 10% Imaging: Radiology studies which I have personally reviewed, analyzed and measured are below: XR: AP of the hip and pelvis: Performed in a good~technique Coccyx is below level of pubic symphysis [place] Lines are interrupted. Minimal~Pathological signs are seen in the Symphysis Pubis. Minimal~Pathological signs are seen at the Ischial tuberosity. ~ Specific measurements show: NSA~ LCE Sourcil~Angle Sharp's angle Lat. Cam Lat. Pincer C.Over~sign Head~Coverage % ATDmm R N 5 29 53 - - - 56 N L N 3 29 54 + - - 56 N Pos. wall sign ISS NAD ~~Dysplasia Comments R + Negative 23.3~mm +++ L ++ Negative 11.9~mm +++ Sclerosis Sup. Lat. OA Cysts Joint Space-WBZ Joint Space-Medial R Negative Negative Negative 5.6~mm 5.3~mm L Negative Negative Negative 5.1~mm 5.1~mm Reena brought in MRI study which was loaded in our system but we are unable to view study at this time. Impression and plan: Jaredis a 26 y.o.~active female~suffering from symptomatic RIGHT~hip pain due to Bilateral~Hip Dyplasia~causing significant disability to her~and altering her ~sport and life activities. Physical examination, imaging, and her~story correspond with the diagnosis mentioned above. I explained that hip dysplasia is a condition wherein the hip joint has excessive play~and instability due to a variety of factors, including the depth and adequacy of the socket, the orientation of the femur bone, and ligament laxity around the hip joint. Dysplasia ranges in severity from borderline to jeana, with treatment options being specific to the specific nature of the problem. Left untreated, the instability in the hip joint can cause progressive tearing of the labrum and deterioration of the surface cartilage, ultimately resulting in progressive osteoarthritis of the hip. I explained that femoroacetabular impingement (ANISH - Cam type) arises due to a bony or soft tissue conflict between the femur (ball) and acetabulum (socket) caused by an abnormality in the shape of the femoral head and neck. Over time, repetitive impingement can result in damage to the labrum and adjacent surface cartilage within the socket, ultimately giving rise to progressive osteoarthritis of the hip. I explained that although a labral tear can be a source of pain, it is rarely the root of the problem and typically occurs secondary to an underlying abnormality in the shape and mechanics of the hip joint. I reviewed conservative treatment options for Dysplasia and ANISH including activity modification to avoid positions of impingement or instability, physical therapy, non-steroidal anti-inflammatory medications, and various injections (corticosteroid and PRP) aimed at reducing inflammation in the hip joint or/and preventing dynamic instability and impingement. PRP injections may promote healing and reduce symptoms in certain cases but it will not repair chronically damaged tissue. Although these measures may help to buy time~and reduce current level of symptoms, they are not a definitive solution to the problem given the underlying abnormality in the shape of the hip joint. Patients who have failed conservative management and continue to experience symptoms are candidates for definitive surgical treatment, which may consist of hip arthroscopy alone or in combination with more invasive bony realignment procedures of the hip socket and/or femur called periacetabular osteotomy (WERO) or derotational femoral osteotomy (DFO). Hip arthroscopy typically includes treating the labrum with either repair or reconstruction of the torn labrum; as well as addressing the underlying abnormalities by restoring the normal shape to the hip joint. If the cartilage is damaged a Microfracture surgical procedure may also be necessary to help stimulate the growth of fibrocartilage. If a patient requires a labral reconstruction or a Microfracture, the initial rehabilitation from the surgery may take longer, but the long term care administrator results are typically favorable. I reviewed the technical aspects of periacetabular osteotomy (WERO) including risks, benefits, and expected course of recovery. Reena~understands that WERO is an inpatient procedure carried out through two medium sized incisions on the front and back of the hip joint. The hip socket is cut, realigned, and stabilized with 2 3 internal screws. Risks include infection, bleeding, injury to nearby nerves or vessels, stiffness, persistent pain, instability, failure of bony healing, implant related complications, and venous thromboembolic disease. Rarely, revision surgery may be required to address these problems. Risks, potential complications, side effects and recovery from surgical procedure were discussed in length. We explained how this surgery is an open procedure, and though patients tend to do well in the long-term, it involves significant pain in the first 2-4 weeks post-op and a rather lengthy rehab.~Overall recovery takes approximately 6 12~months depending on the extent of damage and degree of repair. Reena~understands that she~will undergo hip arthroscopy 1 week prior to the WERO to address damage inside the hip joint. Reena~understands that hip arthroscopy and WERO are two separate procedures that are best performed one week apart, with the arthroscopy commencing first to "tighten up" any pathology evident in the hip joint (labral repair, etc.) and the WERO open procedure occurring 7-10 days later to realign the acetabulum. Jaredwill review the info presented. In order to obtain more detailed information regarding the alignment, orientation, and shape of the bony hip and pelvis I will order a CT scan to be performed. The results of the CT scan, including femoral torsion and acetabular version measured values and 3D images, will aid me in deciding on the best treatment strategy and surgical pre-planning. In order to evaluate the integrity of the surface cartilage within the hip joint , I will order a delayed gadolinium enhanced MRI of cartilage (dGEMRIC). This study will determine whether~Jaredis a good candidate for hip preservation surgery. Jaredwill contact us if she~wishes to pursue further treatment in the future. Jaredis happy with this plan. I have also supplied her~with handouts, outlining the expected surgical treatment and rehab involved. I wish~Jaredall the best, ~~ Jovany Jc, PAC History Information - Allergies/Home Medication List Allergies/Adverse Reactions: No Known Allergies Allergy (Verified 06/28/17 14:28) Home Medications: NK [No Known Home Meds] 06/28/17 [Last Taken Unknown] I have personally reviewed and updated: medical history - Social History Smoking Status: Never smoked Review of Systems Review of Systems: Physical Exam Physical Exam:
[~2017-07-27 05:48] MED LIST changes: +ACETAMINOPHEN 500 MG TAB PO ONE; -HYDROCODONE/APAP 5/325 TAB PO PRN; -HYDROmorphONE/DILAUDID 1 MG/ML INJ IVP PRN; -KETOROLAC 30 MG/1 ML SDV IVP PRN; -LR 500 ML IV PRN; -MEPERIDINE 25 MG/ML SYR IVP PRN; -NALOXONE HCL 0.4 MG/ML INJ IVP PRN; -ONDANSETRON 4 MG/2 ML VIAL IVP PRN; -OXYCODONE/APAP 5/325 TAB PO PRN; +PREGABALIN 150 MG CAP PO ONE; -PROMETHAZINE HCL 25 MG/ML INJ IVP PRN; +ceFAZolin 2 GM/DEXTROSE 100 ML IV ONE; -fentaNYL 100 MCG/2 ML INJ IVP PRN
[2017-07-27] MEDS ORDERED: LR 1,000 ML IV ONE (05:55)
[2017-07-27] MEDS ORDERED: LIDOCAINE 1% 300 MG/30 ML SDV ONE (06:43)
[2017-07-27] MEDS ORDERED: fentaNYL 250 MCG/5 ML INJ ONE (06:52)
[2017-07-27] MEDS ORDERED: PROPOFOL/EMULSION 500 MG/50 ML BOTTLE IV ONE (06:55)
[2017-07-27] MEDS ORDERED: MIDAZOLAM 2 MG/2 ML VIAL IVP ONE (06:57)
--- NOTE | 2017-07-27 07:00 | PDANEPAE ---
ANE History of Present Illness Healthy female for hardware removal Right hip. ANE Past Medical History - Cardiovascular History Hx Hypertension: No Hx Arrhythmias: No Hx Chest Pain: No Hx Coronary Artery / Peripheral Vascular Disease: No Hx CHF / Valvular Disease: No Hx Palpitations: No - Pulmonary History Hx COPD: No Hx Asthma/Reactive Airway Disease: No Hx Recent Upper Respiratory Infection: No Hx Oxygen in Use at Home: No Hx Sleep Apnea: No Sleep Apnea Screening Result - Last Documented: Negative - Neurologic History Hx Cerebrovascular Accident: No Hx Seizures: No Hx Dementia: No - Endocrine History Hx Diabetes: No - Renal History Hx Renal Disorders: No - Liver History Hx Hepatic Disorders: No - Neurological & Psychiatric Hx Hx Neurological and Psychiatric Disorders: No - Cancer History Hx Cancer: No - Congenital Disorder History Hx Congenital Disorders: No - GI History Hx Gastrointestinal Disorders: No - Other Health History Other Health History: wears contacts - Chronic Pain History Chronic Pain: No - Surgical History Prior Surgeries: 12/18/16 Right Hip scope, femoroplasty and labral repair with jessica-betsy. oral surgeries ANE Review of Systems Review of systems is: negative Review of Systems: - Exercise capacity METS (RN): 5 METS ANE Patient History - Allergies Allergies/Adverse Reactions: hydromorphone [From Dilaudid] Allergy (Verified 07/27/17 06:27) HALLUCINATIONS - Home Medications Home Medications: NK [No Known Home Meds] 06/28/17 [Last Taken Unknown] - NPO status NPO Since - Liquids (Date): 07/26/17 NPO Since - Liquids (Time): 21:00 NPO Since - Solids (Date): 07/26/17 NPO Since - Solids (Time): 21:00 - Smoking Hx Smoking Status: Never smoked - Family Anes Hx Family Hx Anesthesia Complications: none ANE Labs/Vital Signs - Vital Signs Blood Pressure: 98/65 Heart Rate: 60 Respiratory Rate: 16 O2 Sat (%): 97 Height: 165.1 cm Weight: 61.235 kg ANE Physical Exam - Airway Neck exam: FROM Mallampati Score: Class 2 Mouth exam: normal dental/mouth exam - Pulmonary Pulmonary: no respiratory distress - Cardiovascular Cardiovascular: regular rate and rhythym - ASA Status ASA Status: I ANE Anesthesia Plan Anesthesia Plan: general endotracheal anesthesia
[2017-07-27] MEDS ORDERED: PROMETHAZINE HCL 25 MG/ML INJ IVP PRN (07:24)
[2017-07-27] MEDS ORDERED: DEXAMETHASONE 4 MG/ML VIAL IVP PRN (07:24)
[2017-07-27] MEDS ORDERED: ONDANSETRON 4 MG/2 ML VIAL IVP PRN (07:24)
[2017-07-27] MEDS ORDERED: HYDROCODONE/APAP 5/325 TAB PO PRN (07:24)
[2017-07-27] MEDS ORDERED: fentaNYL 100 MCG/2 ML INJ IVP PRN (07:24)
[2017-07-27] MEDS ORDERED: ALBUTEROL 3 ML DEYVIAL IH PRN (07:24)
[2017-07-27] MEDS ORDERED: oxyCODONE IR 5 MG TAB PO PRN (07:24)
[2017-07-27] MEDS ORDERED: LABETALOL HCL 5 MG/ML 20 ML MDV IVP PRN (07:24)
[2017-07-27] MEDS ORDERED: NALOXONE HCL 0.4 MG/ML INJ IVP PRN (07:24)
[2017-07-27] MEDS ORDERED: HYDROGEN PEROXIDE 236 ML BOTTLE TP ONE (07:56)
[2017-07-27 10:02] VITALS: BP 91/69
== END 2017-07-27 10:22 | disposition home or self-care (01) ==
LOC: FSGY 05:48
PROVIDERS: ATTEND Orthopaedic Surgery Sports Medicine
PROC: 0QP204Z Removal of Internal Fixation Device from Right Pelvic Bone, Open Approach (ICD-10-PCS; principal; 2017-07-27 07:15)
DX: T84.84XA Pain due to internal orthopedic prosthetic devices, implants and grafts, initial encounter (principal); M25.551 Pain in right hip
CPT/HCPCS: J0690; J2250; J2704; J3010